=== PATIENT | female | born 1995 | race African-American/Black ===

== ENCOUNTER 2017-06-12 17:15 | Emergency (ER) | payer SELFPAY ==
[~2017-06-12] VITALS: Ht 160 cm; Wt 95.0 kg
[~2017-06-12 17:15] MED LIST: AMOX875T PO; FLUT1SPR9 EACH NARE; PREN0.01 PO
[2017-06-12 17:17] VITALS: BP 138/92; PULSE 88; RESP 20; TEMP 99; O2SAT 100
--- NOTE | 2017-06-12 18:35 | PD ---
HPI . thinks her Kegal ball stuck in vagina Chief Complaint: Foreign Body Time Seen by Provider: 18:34 Travel History International Travel<30 days: No Contact w/Intl Traveler<30days: No Traveled to known affect area: No History of Present Illness HPI 22-year-old female here with complaints of possible Kegal ball stuck in her vagina. Patient tells me that she inserted a Kegal in her vagina 2 days ago in an attempt to be adventurous, 1 ball came out, but she's been unable to find the other ball. She reports having a bowel movement today, but did not look in the toilet. She tells me that she did not find a ball in her better in her room. She does not have any abnormal sensation or pain. PFSH Past Medical History Hx Anticoagulant Therapy: No Cardiac Catheterization: Yes (2003 W STENT PLACEMENT) Cardiovascular Problems: No Chemotherapy: No Cerebrovascular Accident: No Diabetes: No Diminished Hearing: No Respiratory: No Immunizations Current: Yes Past Surgical History Cardiac Surgery: Yes (HAD REPAIR OF HOLE IN HEART) Coronary Stent: Yes (2003 HOLE IN TH HEART FROM ) Hysterectomy: No Social History Alcohol Use: No Tobacco Use: No Substance Use: No Allergies-Medications (Allergen,Severity, Reaction): Coded Allergies: No Known Allergies (Verified , 06/12/17) Reported Meds & Prescriptions Reported Meds & Active Scripts Active Flonase Allergy Relief (Fluticasone Propionate (Nasal)) 50 Mcg/Act Spr 2 [place] EACH NARE DAILY Trimox 875 Mg Tab (Amoxicillin) 875 Mg Tab 875 Mg PO Q12 Reported Vit ( Plus) (Prenat Multivit/Accord/Iron/Folic Ac) Tab 1 Tab PO DAILY Review of Systems General / Constitutional: No: Fever Eyes: No: Visual changes HENT: No: Headaches Cardiovascular: No: Chest Pain or Discomfort Respiratory: No: Shortness of Breath Gastrointestinal: No: Abdominal Pain Genitourinary: No: Dysuria Musculoskeletal: No: Pain Skin: No Rash Neurologic: No: Weakness Psychiatric: No: Depression Endocrine: No: Polydipsia Hematologic/Lymphatic: No: Easy Bruising Physical Exam Narrative GENERAL: AAO x 3, no acute distress, Well-nourished, well-developed patient. SKIN: Warm and dry. No visible rashes or bruising. HEAD: Normocephalic and atraumatic. EYES: No scleral icterus. No injection or drainage. ENT: No nasal drainage noted. Mucous membranes pink. Airway patent. NECK: Supple, trachea midline. No JVD. CARDIOVASCULAR: Regular rate and rhythm without murmurs, gallops, or rubs. RESPIRATORY: Breath sounds equal bilaterally. No accessory muscle use. No rhonchi or rales. GASTROINTESTINAL: Abdomen soft, non-tender, nondistended. GENITAL: Tiarra RN present: No vaginal abnormality other than what appears to be cervical dysplasia, no Kegal ball appreciated: no FB found EXTREMITIES: No cyanosis or edema. BACK: No obvious deformity. NEURO: CN II-12 intact, thermal technician strength normal b/l, UE and LE 5/5, no focal deficits PSYCH: AAO x 3, normal affect. Data Data Last Documented VS Vital Signs Date Time Temp Pulse Resp B/P (MAP) Pulse Ox O2 Delivery O2 Flow Rate FiO2 06/12/17 17:17 99.0 88 20 138/92 (107) 100 Room Air MDM Medical Decision Making Medical Screen Exam Complete: Yes Emergency Medical Condition: Yes Medical Record Reviewed: Yes Differential Diagnosis fb in vagina, less likely vaginal laceration Narrative Course 22-year-old female here with possible retained foreign body in her vagina. On examination I do not appreciate any type of foreign body. I have done an examination repeatedly. 4 times to be exact. I also used a cotton tip applicator to move around the vagina and there is no visible retained foreign body. I think it may have passed out of her vagina when she used the bathroom. She does appear to have some cervical dysplasia and I recommend that she have a Pap smear. Patient verbalized understanding of instructions, questions were answered, and thanked me for their care. I advised them if their condition worsens, please return to the nearest emergency room for further care. Diagnosis Primary Impression: Vaginal irritation Patient Instructions: General Instructions Additional Instructions: Please follow-up with a parts control clerk for a Pap smear. Disposition: 01 DISCHARGE HOME Condition: Stable Nichole Mora Jun 12, 2017 18:35
== END 2017-06-12 19:29 | disposition home or self-care (01) ==
LOC: NEPD 17:15
DX: N89.8 Other specified noninflammatory disorders of vagina (principal)
CPT/HCPCS: 99282

== ENCOUNTER 2017-07-09 18:54 | Emergency (ER) | payer SELFPAY ==
[~2017-07-09] VITALS: Ht 160 cm; Wt 91.0 kg
[2017-07-09 18:55] VITALS: BP 158/91; PULSE 93; RESP 14; TEMP 98.4; O2SAT 100
--- NOTE | 2017-07-09 22:09 | PD ---
HPI Chief Complaint: GI Complaint Time Seen by Provider: 21:37 Travel History International Travel<30 days: No Contact w/Intl Traveler<30days: No Traveled to known affect area: No History of Present Illness HPI Patient is a 22-year-old female presents emergency department for evaluation of diarrhea for the past 2 weeks. Patient states his been having mucousy discharge as well. Denies any abdominal pain fevers or nausea or vomiting. Denies any blood in the stool. 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 States symptoms are severe, constant, duration is the past 7 days, associated signs symptoms as above. PFSH Past Medical History Hx Anticoagulant Therapy: No Cardiac Catheterization: Yes (2003 W STENT PLACEMENT) Cardiovascular Problems: Yes (HEART SX) Chemotherapy: No Cerebrovascular Accident: No Diabetes: No Diminished Hearing: No Respiratory: No Immunizations Current: Yes ?: Unknown LMP: 06/21/17 Past Surgical History Cardiac Surgery: Yes (HAD REPAIR OF HOLE IN HEART) Coronary Stent: Yes (2003 HOLE IN TH HEART FROM ) Hysterectomy: No Social History Alcohol Use: Yes (wine occassional) Tobacco Use: No Substance Use: No Allergies-Medications (Allergen,Severity, Reaction): Coded Allergies: No Known Allergies (Verified , 07/09/17) Reported Meds & Prescriptions Reported Meds & Active Scripts Active Zofran (Ondansetron HCl) 4 Mg Tab 4 Mg PO Q6HR PRN Flagyl (Metronidazole) 500 Mg Tab 500 Mg PO BID 7 Days Ciprofloxacin (Ciprofloxacin HCl) 500 Mg Tab 500 Mg PO BID 7 Days Flonase Allergy Relief Ch (Fluticasone Propionate (Nasal)) 50 Mcg/Act Spr 2 [place] EACH NARE DAILY Trimox 875 Mg Tab (Amoxicillin) 875 Mg Tab 875 Mg PO Q12 Reported Vit ( Plus) (Prenat Multivit/[facility] Certified Concierge/Iron/Folic Ac) Tab 1 Tab PO DAILY Review of Systems Except as stated in HPI: all other systems reviewed are Neg Physical Exam Narrative GENERAL: Well-developed well-nourished no obvious distress. SKIN: Focused skin assessment warm/dry. Normal skin turgor HEAD: Atraumatic. Normocephalic. EYES: Pupils equal and round. No scleral icterus. No injection or drainage. ENT: No nasal bleeding or discharge. Mucous membranes pink and moist. NECK: Trachea midline. No JVD. CARDIOVASCULAR: Regular rate and rhythm. No murmur appreciated. RESPIRATORY: No accessory muscle use. Clear to auscultation. Breath sounds equal bilaterally. GASTROINTESTINAL: Abdomen soft, non-tender, nondistended. Hepatic and splenic margins not palpable. MUSCULOSKELETAL: No obvious deformities. No clubbing. No cyanosis. No edema. NEUROLOGICAL: Awake and alert. No obvious cranial nerve deficits. Motor grossly within normal limits. Normal speech. PSYCHIATRIC: Appropriate mood and affect; insight and judgment normal. Data Data Last Documented VS Vital Signs Date Time Temp Pulse Resp B/P (MAP) Pulse Ox O2 Delivery O2 Flow Rate FiO2 07/09/17 23:03 07/09/17 18:55 98.4 93 14 100 Orders Orders Ed Urine Pregnancytest Poc (07/09/17 22:14) Ed Discharge Order (07/09/17 22:50) [facility] Medical Decision Making Medical Screen Exam Complete: Yes Emergency Medical Condition: Yes Differential Diagnosis Diarrhea, infectious diarrhea, C. difficile, gastritis, gastroenteritis. Narrative Course Patient roomed emergency department, low risk for severe bacterial infection. Given the duration of her diarrhea think empiric treatment is warranted. She she does not appear dehydrated at this time and therefore no indication for blood work or other workup at this time. She is stable for discharge. Diagnosis Primary Impression: Diarrhea Qualified Codes: A09 - Infectious gastroenteritis and colitis, unspecified Med/Other Pt SpecificInfo: Prescription(s) given Scripts Ondansetron (Zofran) 4 Mg Tab 4 MG PO Q6HR Y for NAUSEA OR VOMITING, #20 TAB 0 Refills Prov: Jb Flor MD 07/09/17 Metronidazole (Flagyl) 500 Mg Tab 500 MG PO BID for Infection for 7 Days, #14 TAB 0 Refills Prov: Jb Flor MD 07/09/17 Ciprofloxacin (Ciprofloxacin) 500 Mg Tab 500 MG PO BID for Infection for 7 Days, #14 TAB 0 Refills Prov: Jb Flor MD 07/09/17 Disposition: 01 DISCHARGE HOME Condition: Stable Jb Flor MD Jul 09, 2017 22:09
[2017-07-09] MEDS ORDERED: CIPR500T2 PO (22:50)
[2017-07-09] MEDS ORDERED: ZOFR4TAB PO (22:50)
[2017-07-09] MEDS ORDERED: METR-1 PO (22:50)
== END 2017-07-09 23:12 | disposition home or self-care (01) ==
LOC: NEPD 18:54
DX: A09 Infectious gastroenteritis and colitis, unspecified (principal)
CPT/HCPCS: 84703; 99284

== ENCOUNTER 2017-07-27 15:03 | Emergency (ER) | payer SELFPAY ==
[~2017-07-27] VITALS: Ht 160 cm; Wt 100.0 kg
[~2017-07-27 15:03] MED LIST changes: +CIPR500T2 PO; +METR-1 PO; +ZOFR4TAB PO
[2017-07-27 15:05] VITALS: BP 135/64; PULSE 81; TEMP 98.6; O2SAT 99
[2017-07-27] MEDS ORDERED: KETOROLAC TROMETHAMINE 60 MG/2 ML (IM) VIAL IM ONE (16:30)
--- NOTE | 2017-07-27 16:30 | PD ---
HPI Chief Complaint: Headache Time Seen by Provider: 16:19 Travel History International Travel<30 days: No Contact w/Intl Traveler<30days: No Traveled to known affect area: No History of Present Illness HPI 22-year-old female complains of headache patient states that headache started this morning. Patient states that headache throbbing headache behind her eyes. Patient denies any visual change. Patient denies any neck pain. Patient denies any chest pain or shortness of breath. Patient denies abdominal pain. Patient denies any focal weakness or numbness of the extremity. Patient denies any history of headache. Patient denies family history of migraine. Patient denies any recent head injury. Patient denies any chance of being . PFSH Past Medical History Hx Anticoagulant Therapy: No Cardiac Catheterization: Yes (2003 W STENT PLACEMENT) Cardiovascular Problems: Yes (HEART SX) Chemotherapy: No Cerebrovascular Accident: No Diabetes: No Diminished Hearing: No Respiratory: No Immunizations Current: Yes Influenza Vaccination: No ?: Not LMP: 06/2017 Past Surgical History Cardiac Surgery: Yes (HAD REPAIR OF HOLE IN HEART) Coronary Stent: Yes (2003 HOLE IN TH HEART FROM ) Hysterectomy: No Family History Family Breast Cancer: Yes (maternal aunt) Social History Alcohol Use: Yes (occassional liquor) Tobacco Use: No Substance Use: No Allergies-Medications (Allergen,Severity, Reaction): Coded Allergies: No Known Allergies (Verified Adverse Reaction, Unknown, 07/27/17) Reported Meds & Prescriptions Reported Meds & Active Scripts Active No Active Prescriptions or Reported Medications Review of Systems General / Constitutional: No: Fever Eyes: No: Visual changes HENT: Positive: Headaches Cardiovascular: No: Chest Pain or Discomfort Respiratory: No: Shortness of Breath Gastrointestinal: No: Abdominal Pain Genitourinary: No: Dysuria Musculoskeletal: No: Pain Skin: No Rash Neurologic: No: Weakness Psychiatric: No: Depression Endocrine: No: Polydipsia Hematologic/Lymphatic: No: Easy Bruising Physical Exam Narrative GENERAL: Well-nourished, well-developed patient. SKIN: Focused skin assessment warm/dry. HEAD: Normocephalic. EYES: No scleral icterus. No injection or drainage. Pupils 2 mm equal reactive. NECK: Supple, trachea midline. No JVD or lymphadenopathy. No meningismus CARDIOVASCULAR: Regular rate and rhythm without murmurs, gallops, or rubs. RESPIRATORY: Breath sounds equal bilaterally. No accessory muscle use. GASTROINTESTINAL: Abdomen soft, non-tender, nondistended. MUSCULOSKELETAL: No cyanosis, or edema. BACK: Nontender without obvious deformity. No CVA tenderness. Neurologic exam: Patient's awake and alert oriented 3. No obvious focal neurological deficit. Data Data Last Documented VS Vital Signs Date Time Temp Pulse Resp B/P (MAP) Pulse Ox O2 Delivery O2 Flow Rate FiO2 07/27/17 15:05 98.6 81 135/64 (87) 99 Orders Orders Ketorolac Inj (Toradol Inj) (07/27/17 16:30) Ct Brain W/O Iv Contrast(Rout) (07/27/17 16:30) [facility] Medical Decision Making Medical Screen Exam Complete: Yes Emergency Medical Condition: Yes Interpretation(s) [address] of the brain shows unremarkable CT of the brain. Chronic ethmoid sinus disease. Differential Diagnosis Differential diagnosis including migraine headache, tension headache, cluster headache. Narrative Course 22-year-old female with headache. Toradol 60 mg IM. Diagnosis Primary Impression: Cephalgia Qualified Codes: R51 - Headache Additional Impression: Sinusitis Qualified Codes: J01.20 - Acute ethmoidal sinusitis, unspecified Patient Instructions: General Instructions Additional Instructions: Take medications as directed. Follow-up with personal physician. Return if persistent problem or worse. Med/Other Pt SpecificInfo: Prescription(s) given Scripts Amoxicillin-Clavulanate (Augmentin) 875-125 Mg Tab 1 TAB PO BID for Infection, #20 TAB 0 Refills Prov: Cortes Husain MD 07/27/17 Gaokaiyqqx-Eslwnzwngkmau-Uhzsxata (Fioricet) 50-300-40 Mg Cap 1-2 CAP PO Q6H Y for HEADACHE, #20 CAP 0 Refills Prov: Cortes Husain MD 07/27/17 Disposition: 01 DISCHARGE HOME Condition: Stable Cortes Husain MD Jul 27, 2017 16:30
--- NOTE | 2017-07-27 16:59 | RADRPT ---
EXAM DATE/TIME: 07/27/2017 16:48 [place] COMPARISON: No previous studies available for comparison. INDICATIONS : Right eye pain for one day. RADIATION DOSE: 37.52 CTDIvol (mGy) MEDICAL HISTORY : None SURGICAL HISTORY : Cardiac sx. ENCOUNTER: Initial ACUITY: 1 day PAIN SCALE: 8/10 LOCATION: Right cranial TECHNIQUE: Multiple contiguous axial images were obtained of the head. Using automated exposure control and adj ustment of the mA and/or kV according to patient size, radiation dose was kept as low as reasonably a chievable to obtain optimal diagnostic quality images. DICOM format image data is available electro nically for review and comparison. FINDINGS: CEREBRUM: The ventricles are normal for age. No evidence of midline shift, mass lesion, hemorrhage or acute in farction. No extra-axial fluid collections are seen. POSTERIOR FOSSA: The cerebellum and brainstem are intact. The 4th ventricle is midline. The cerebellopontine angle i s unremarkable. EXTRACRANIAL: The visualized portion of the orbits is intact. Chronic sinus disease ethmoid sinuses. SKULL: The calvaria is intact. No evidence of skull fracture. CONCLUSION: 1. Unremarkable CT scan of the brain. 2. Chronic ethmoid sinus disease. Kale Santillan MD on July 27, 2017 at 16:56 Board Certified Radiologist. This report was verified electronically.
[2017-07-27] MEDS ORDERED: BUTA1CAP PO (17:17)
[2017-07-27] MEDS ORDERED: AUGM875T3 PO (17:17)
== END 2017-07-27 18:00 | disposition home or self-care (01) ==
LOC: NEPD 15:03
DX: R51 Headache (principal); J01.20 Acute ethmoidal sinusitis, unspecified
CPT/HCPCS: 70450; 96372; 99284; J1885

== ENCOUNTER 2017-12-26 19:05 | Emergency (ER) | payer SELFPAY ==
[~2017-12-26] VITALS: Ht 160 cm; Wt 90.0 kg
[~2017-12-26 19:05] MED LIST changes: -AMOX875T PO; +AUGM875T3 PO; +BUTA1CAP PO; -CIPR500T2 PO; -FLUT1SPR9 EACH NARE; -METR-1 PO; -PREN0.01 PO; -ZOFR4TAB PO
[2017-12-26 19:11] VITALS: BP 156/80; PULSE 97; RESP 18; TEMP 99.2; O2SAT 100
[2017-12-26 21:49] LABS: AUTOMATED NEUTROPHIL # 5.8 TH/MM3 (1.8-7.7); BASOPHIL # 0.1 TH/MM3 (0-0.2); BASOPHIL % 0.6 % (0.0-2.0); EOSINOPHIL # 0.3 TH/MM3 (0-0.4); EOSINOPHIL % 3.2 % (0.0-4.0); HEMATOCRIT 37.9 % (35.0-46.0); HEMOGLOBIN 12.2 GM/DL (11.6-15.3); LYMPH % 29.2 % (9.0-44.0); LYMPHOCYTE # 2.9 TH/MM3 (1.0-4.8); MEAN CELL VOLUME 73.5 FL (80.0-100.0); MEAN CORPUSCULAR HEMOGLOBIN 23.6 PG (27.0-34.0); MEAN CORPUSCULAR HGB CONC 32.1 % (32.0-36.0); MEAN PLATELET VOLUME 7.2 FL (7.0-11.0); MONO % 7.9 % (0.0-8.0); MONOCYTE # 0.8 TH/MM3 (0-0.9); NEUT % 59.1 % (16.0-70.0); PLATELET COUNT 338 TH/MM3 (150-450); RED BLOOD COUNT 5.16 MIL/MM3 (4.00-5.30); RED CELL DISTRIBUTION WIDTH 13.9 % (11.6-17.2); WHITE BLOOD COUNT 9.9 TH/MM3 (4.0-11.0)
[2017-12-26 21:52] LABS: BILIRUBIN, URINE NEG (NEG); BLOOD, URINE NEG (NEG); GLUCOSE,URINE NEG (NEG); KETONE, URINE NEG (NEG); MUCUS URINE FEW /lpf (OCC); NITRITE,URINE NEG (NEG); PH, URINE 5.5 (5.0-8.5); SQUAMOUS EPITHELIAL CELL URINE 2 /hpf (0-5); URINE COLOR YELLOW (YELLW/STRAW); URINE LEUKOCYTE ESTERASE TRACE (NEG)
[2017-12-26 22:10] LABS: ALBUMIN 3.7 GM/DL (3.4-5.0); AST (GOT) 13 U/L (15-37); BICARBONATE 25.5 MEQ/L (21.0-32.0); BLOOD UREA NITROGEN 9 MG/DL (7-18); CALCIUM 8.8 MG/DL (8.5-10.1); CHLORIDE 105 MEQ/L (98-107); CREATININE 0.72 MG/DL (0.50-1.00); GLOMERULAR FILTRATION RATE 121 ML/MIN (>89); GLUCOSE,RANDOM 89 MG/DL (74-106); SODIUM (NA) 139 MEQ/L (136-145)
[2017-12-26 22:11] LABS: ALT (GPT) 17 U/L (10-53)
[2017-12-26 22:13] LABS: ALKALINE PHOSPHATASE 70 U/L (45-117); TOTAL BILIRUBIN ADULT 0.4 MG/DL (0.2-1.0); TOTAL PROTEIN 8.1 GM/DL (6.4-8.2)
[2017-12-26 22:14] VITALS: BP 156/86; PULSE 77; RESP 18; O2SAT 100
--- NOTE | 2017-12-26 22:38 | PD ---
HPI Chief Complaint: Abdominal Pain Time Seen by Provider: 22:29 Travel History International Travel<30 days: No Contact w/Intl Traveler<30days: No Traveled to known affect area: No History of Present Illness HPI Patient comes emerge department complaining of abdominal pain that began yesterday. Patient describes pain as a sharp stabbing pain in the periumbilical radiates to her right flank. Patient reports taking Tylenol that has improved her pain. Patient denies anything making the pain worse. Denies any nausea, vomiting, fevers, loss change in bowel or bladder, abnormal vaginal discharge, chest pain, shortness of breath, numbness or tingling anywhere, or . Severity mild. Denies any history of abdominal surgeries. PFSH Past Medical History Hx Anticoagulant Therapy: No Cardiac Catheterization: Yes (2003 W STENT PLACEMENT) Cardiovascular Problems: Yes (HEART SX) Chemotherapy: No Cerebrovascular Accident: No Diabetes: No Diminished Hearing: No Respiratory: No Immunizations Current: Yes ?: Not LMP: 12/19/2017 Past Surgical History Cardiac Surgery: Yes (HAD REPAIR OF HOLE IN HEART) Coronary Stent: Yes (2003 HOLE IN TH HEART FROM ) Hysterectomy: No Social History Alcohol Use: Yes (occassional liquor) Tobacco Use: No Substance Use: No Allergies-Medications (Allergen,Severity, Reaction): Coded Allergies: No Known Allergies (Verified Adverse Reaction, Unknown, 07/27/17) Reported Meds & Prescriptions Reported Meds & Active Scripts Active No Active Prescriptions or Reported Medications Review of Systems Except as stated in HPI: all other systems reviewed are Neg Physical Exam Narrative GENERAL: Well-developed, overly nourished, in no acute distress, and non-ill appearing. SKIN: Focused skin assessment warm and dry. HEAD: Atraumatic. Normocephalic. EYES: Pupils equal and round. EOMI. No scleral icterus. No injection or drainage. ENT: No nasal bleeding or discharge. Mucous membranes pink and moist. NECK: Trachea midline. No JVD. Supple. No nuclear rigidity. CARDIOVASCULAR: Regular rate and rhythm. No murmur appreciated. RESPIRATORY: No accessory muscle use. No respiratory distress. Clear to auscultation. Breath sounds equal bilaterally. GASTROINTESTINAL: Abdomen soft, non-tender, nondistended, and no guarding. Hepatic and splenic margins not palpable. Normal bowel sounds x4. No pulsatile mass. No CVA tenderness. MUSCULOSKELETAL: No obvious deformities. No clubbing. No cyanosis. No edema. Full range of motion. NEUROLOGICAL: Awake and alert. No obvious cranial nerve deficits. Motor grossly within normal limits. Normal speech. PSYCHIATRIC: Appropriate mood and affect; insight and judgment normal. Data Data Last Documented VS Orders Orders Complete Blood Count With Diff (12/26/17 19:13) Comprehensive Metabolic Panel (12/26/17 19:13) Lipase (12/26/17 19:13) Urinalysis - C+S If Indicated (12/26/17 19:13) Ed Urine Pregnancytest Poc (12/26/17 19:13) Ed Discharge Order (12/26/17 22:39) Labs Laboratory Tests Test 12/26/17 20:00 12/26/17 20:56 Urine Color YELLOW Urine Turbidity CLEAR Urine pH 5.5 Urine Specific [place] 1.026 Urine Protein NEG mg/dL Urine Glucose (UA) NEG mg/dL Urine Ketones NEG mg/dL Urine Occult Blood NEG Urine Nitrite NEG Urine Bilirubin NEG Urine Urobilinogen 2.0 MG/DL Urine Leukocyte Esterase TRACE Urine RBC 1 /hpf Urine WBC 3 /hpf Urine Squamous Epithelial Cells 2 /hpf Urine Mucus FEW /lpf Microscopic Urinalysis Comment CULT NOT INDICATED White Blood Count 9.9 TH/MM3 Red Blood Count 5.16 MIL/MM3 Hemoglobin 12.2 GM/DL Hematocrit 37.9 % Mean Corpuscular Volume 73.5 FL Mean Corpuscular Hemoglobin 23.6 PG Mean Corpuscular Hemoglobin Concent 32.1 % Red Cell Distribution Width 13.9 % Platelet Count 338 TH/MM3 Mean Platelet Volume 7.2 FL Neutrophils (%) (Auto) 59.1 % Lymphocytes (%) (Auto) 29.2 % Monocytes (%) (Auto) 7.9 % Eosinophils (%) (Auto) 3.2 % Basophils (%) (Auto) 0.6 % Neutrophils # (Auto) 5.8 TH/MM3 Lymphocytes # (Auto) 2.9 TH/MM3 Monocytes # (Auto) 0.8 TH/MM3 Eosinophils # (Auto) 0.3 TH/MM3 Basophils # (Auto) 0.1 TH/MM3 CBC Comment DIFF FINAL Differential Comment Blood Urea Nitrogen 9 MG/DL Creatinine 0.72 MG/DL Random Glucose 89 MG/DL Total Protein 8.1 GM/DL Albumin 3.7 GM/DL Calcium Level 8.8 MG/DL Alkaline Phosphatase 70 U/L Aspartate Amino Transf (AST/SGOT) 13 U/L Alanine Aminotransferase (ALT/SGPT) 17 U/L Total Bilirubin 0.4 MG/DL Sodium Level 139 MEQ/L Potassium Level 3.9 MEQ/L Chloride Level 105 MEQ/L Carbon Dioxide Level 25.5 MEQ/L Anion Gap 9 MEQ/L Estimat Glomerular Filtration Rate 121 ML/MIN Lipase 161 U/L MDM Medical Decision Making Medical Screen Exam Complete: Yes Emergency Medical Condition: Yes Differential Diagnosis Gastritis, appendicitis, UTI, renal calculi, IBS, biliary colic, pancreatitis Narrative Course The patient presented with nonspecific abdominal pain. There was no significant history of vomiting or diarrhea and no fever. The patient appeared comfortable, well hydrated and the abdominal exam was unremarkable and nontender to me. Laboratory evaluation revealed no significant abnormalities. There was no evidence of an acute, surgical abdomen at this time. There was no clinical evidence to support appendicitis, bowel obstruction, cholecystitis/ cholelithiasis, pancreatitis, perforation of gastric ulcer, colitis, diverticulitis, bacterial peritonitis, obstruction, volvulus, hernial incarceration or strangulation at this time. There was no evidence to support vascular pathology such as AAA, mesenteric ischemia. There was also no clinical evidence by history, exam or risk factors to suggest atypical presentation of cardiac disease such as ACS, AMI or atypical angina. No evidence to suggest genitourinary etiology as well. Clinical picture was discussed with the patient , as well as plan of care. The patient was instructed to follow up with their physician. Abdominal pain warnings were discussed with the patient. The patient is to return if worsens, pain worsens or changes, develop fever, inability to tolerate fluids with or without vomiting, unable to establish follow up or as needed. The patient agrees with plan. Patient in no obvious distress upon re-evaluation. All pertinent laboratory result(s) discussed with patient. Discussed patient with Dr. Flor prior discharge, who is in agreement with plan of care and disposition. Any questions /concerns in reference to patient diagnosis/condition discussed and clarified prior to patient's discharge. Reinforced sheer importance of close follow up with patient's primary physician or primary care clinic. Instructed patient to return to ED immediately, if symptoms return/worsen. Patient showed understanding of above instructions. Further instructions and recommendations were detailed in discharge paperwork. Patient ambulated without difficulty out of ED at discharge. Diagnosis Primary Impression: Abdominal pain Qualified Codes: R10.9 - Unspecified abdominal pain Referrals: [facility] Patient Instructions: Abdominal Pain (ED), General Instructions Additional Instructions: Follow-up with your primary care physician this week for reevaluation. Return to the emergency department if symptoms get worse. Scripts No Active Prescriptions or Reported Meds Disposition: 01 DISCHARGE HOME Condition: Stable Alex Lynn Dec 26, 2017 22:38
== END 2017-12-26 22:52 | disposition home or self-care (01) ==
LOC: NEPE 19:05
DX: R10.9 Unspecified abdominal pain (principal)
CPT/HCPCS: 80053; 81001; 83690; 84703; 85025; 99283